=== PATIENT | male | born 1995 | race Caucasian/White ===

== ENCOUNTER 2017-06-22 14:36 | Emergency (ER) | payer BC ==
[~2017-06-22] VITALS: Ht 177.8 cm; Wt 80.0 kg
[~2017-06-22 14:36] MED LIST: ALBU8.5H3 INH; ALBU8.5H5 INH; CETI10CA PO; GUAI118L94 PO; GUAI120S26 PO; PRED20TA PO; PRED50TA PO
[2017-06-22 14:39] VITALS: Ht 177.8 cm; Wt 80.0 kg
[2017-06-22] MEDS ORDERED: LIDOCAINE 1% (MDV) 20 ML INJ SC ONE (15:00)
--- NOTE | 2017-06-22 17:29 | ERD ---
ER Documentation Chief Complaint Date/Time DATE: 06/22/17 TIME: 17:20 Chief Complaint left index lac HPI 22-year-old male coming in complaining of a laceration to his right index finger. Patient is right-hand dominant. Laceration was sustained when he was cleaning a knife. Last tetanus shot was 2 months ago. Patient denies any numbness or tingling. Patient states he is able to move his fingers without any difficulty. Medical history: Denies NKDA Surgical history: Denies Social history: Denies ROS All systems reviewed and are negative except as per history of present illness. Medications Home Meds Active Scripts Cetirizine Hcl* (Zyrtec*) 10 Mg Capsule, 10 MG PO DAILY, #30 TAB.CHEW Prov:CRISTA BANSAL NP 02/04/16 Omsiihsdkex-K-Uhejsxwqbf Hb* (Guaifenesin* DM Syrup) 120 Ml Syrup, 10 ML PO Q4H Y for COUGH, #120 ML Prov:CRISTA BANSAL NP 02/04/16 Prednisone* (Prednisone*) 50 Mg Tablet, 50 MG PO DAILY for 5 Days, TAB Prov:CRISTA BANSAL NP 02/04/16 Albuterol Sulfate* (Proair HFA*) 8.5 Gm Hfa.aer.ad, 2 PUFF INH Q4H Y for WHEEZING AND SOB, #1 INHALER Prov:CRISTA BANSAL NP 02/04/16 Prednisone* (Prednisone*) 50 Mg Tablet, 50 MG PO DAILY for 5 Days, TAB Prov:CRISTA BANSAL NP 12/09/15 Albuterol Sulfate* (Proair HFA*) 8.5 Gm Hfa.aer.ad, 2 PUFF INH Q4H Y for WHEEZING AND SOB, #1 INHALER Prov:CRISTA BANSAL NP 12/09/15 Guaifenesin-Codeine Phosphate* (Guaifenesin* with Codeine Liq) 120 Ml Liquid, 5 ML PO Q4H for COUGH, #60 ML Prov:CRISTA BANSAL NP 12/09/15 Albuterol Sulfate* (Albuterol Sulfate* HFA) 8.5 Gm Hfa.aer.ad, 1-2 PUFF INH Q4 Y for SHORTNESS OF BREATH, #1 EA Prov:ELDER MIXON. 06/01/15 Prednisone* (Prednisone*) 20 Mg Tab, 60 MG PO DAILY for 5 Days Prov:ELDER MIXON. 06/01/15 Reported Medications Albuterol Sulfate* (Proair HFA*) Unknown Strength Hfa.aer.ad, INH Q6, #1 INHALER 02/04/16 Allergies Allergies: Coded Allergies: No Known Allergy (Unverified , 02/04/16) PMhx/Soc History of Surgery: No Anesthesia Reaction: No Hx Neurological Disorder: No Hx Respiratory Disorders: Yes (Asthma) Hx Cardiac Disorders: No Hx Psychiatric Problems: No Hx Miscellaneous Medical Probl: No Hx Alcohol Use: Yes (Social) Hx Substance Use: Yes (MARIJUANA ) Hx Tobacco Use: No Physical Exam Vitals Vital Signs Date Time Temp Pulse Resp B/P Pulse Ox O2 Delivery O2 Flow Rate FiO2 06/22/17 14:39 98.0 67 18 131/71 99 Physical Exam GENERAL: The patient is well-appearing, well-nourished, in no acute distress CHEST: Clear to auscultation bilaterally. There are no rales, wheezes or rhonchi. HEART: Regular rate and rhythm. No murmurs, clicks, rubs or gallops. No S3 or S4. NEUROLOGIC: Alert and oriented. Cranial nerves II through XII intact. Motor strength in all 4 extremities with 5 out of 5 strength. Sensation grossly intact. Normal speech and gait. Babinski negative. DTR 2+ throughout. SKIN: 3 cm circular skin flap laceration on pad of right index finger. Mild bleeding. EXTREMITIES: Normal flexion extension of right index finger. Normal sensation to right index finger. Refill less than 2 seconds. Strength 5 out of 5 to right index finger. Results 24 hrs Current Medications Medications (Trade) Dose Ordered Sig/Hayde Route PRN Reason Start Time Stop Time Status Last Admin Dose Admin Lidocaine (Xylocaine 1% (Mdv) 20 ml) 20 ml ONCE ONCE SC 06/22/17 15:00 06/22/17 15:01 DC Procedures/MDM Laceration Note: Wound cleaned with Normal Saline. No foreign body seen. Bleeding well controlled. 4cc plain lido injected in right index finger and volar fashion. 5 5-0 nylon simple interrupted sutures placed. Edges well approximated. Site re-cleaned and bandage placed. Patient tolerated procedure well. MDM: 22-year-old male coming in for laceration repair of right index finger. I have low suspicion for tendon or ligament injury. Low suspicion for decreased sensation. Patient is neurovascularly intact. I have low suspicion for retained foreign body. No foreign body seen on blunt inspection. I have low suspicion for bone involvement. I do not feel there is indication for x-rays. Patient will be discharged with strict ER precautions. I recommended patient to leave bandage on for 24 hours and then clean with soap and water and re- bandage. Patient's sutures will be removed within 7 days and patient is recommended to return for wound check in 2 days. Departure Diagnosis: Primary Impression: Laceration Condition: Stable Patient Instructions: Laceration, Hand Referrals: [facility] YOU HAVE RECEIVED A MEDICAL SCREENING EXAM AND THE RESULTS INDICATE THAT YOU DO NOT HAVE A CONDITION THAT REQUIRES URGENT TREATMENT IN THE EMERGENCY DEPARTMENT. FURTHER EVALUATION AND TREATMENT OF YOUR CONDITION CAN WAIT UNTIL YOU ARE SEEN IN YOUR DOCTORS OFFICE WITHIN THE NEXT 1-2 DAYS. IT IS YOUR RESPONSIBILITY TO MAKE AN APPOINTMENT FOR [facility]. IF YOU HAVE A PRIMARY DOCTOR --you should call your primary doctor and schedule an appointment IF YOU DO NOT HAVE A PRIMARY DOCTOR YOU CAN CALL OUR PHYSICIAN REFERRAL HOTLINE AT IF YOU CAN NOT AFFORD TO SEE A PHYSICIAN YOU CAN CHOSE FROM THE FOLLOWING [facility] [address] [facility]. [facility] [address] [facility] [address] [facility] [facility] [address] [facility]. [facility] [address] [facility]. [facility]. [address] Additional Instructions: FOLLOW UP WITH YOUR PRIMARY CARE PHYSICIAN TOMORROW.Return to this facility if you are not improving as expected. COURTNEY ANAND PA-C Jun 22, 2017 17:29
== END 2017-06-22 16:16 | disposition home or self-care (01) ==
LOC: FTE 14:36
DX: S61.210A Laceration without foreign body of right index finger without damage to nail, initial encounter (principal); J45.909 Unspecified asthma, uncomplicated; W26.0XXA Contact with knife, initial encounter; Y92.9 Unspecified place or not applicable

== ENCOUNTER 2017-06-24 11:59 | Emergency (ER) | payer BC ==
[~2017-06-24] VITALS: Ht 177.8 cm; Wt 80.0 kg
[2017-06-24 12:02] VITALS: Ht 177.8 cm; Wt 80.0 kg
--- NOTE | 2017-06-24 12:24 | ERD ---
ER Documentation Chief Complaint Date/Time DATE: 06/24/17 TIME: 12:21 Chief Complaint wound check on r 2nd finger HPI Is a 22-year-old male who presents the emergency department today for wound check of a laceration that he sustained on his right index finger 2 days ago. Patient denies any fevers or chills. States he does have some mild pulsing but has not taken a medication for the pain. ROS All systems reviewed and are negative except as per history of present illness. Medications Home Meds Active Scripts Cetirizine Hcl* (Zyrtec*) 10 Mg Capsule, 10 MG PO DAILY, #30 TAB.CHEW Prov:CRISTA BANSAL DIRECTOR ORANGE 02/04/16 Cvoulhwzrld-N-Egaxdtlqqb Hb* (Guaifenesin* DM Syrup) 120 Ml Syrup, 10 ML PO Q4H Y for COUGH, #120 ML Prov:CRISTA BANSAL NP 02/04/16 Prednisone* (Prednisone*) 50 Mg Tablet, 50 MG PO DAILY for 5 Days, TAB Prov:CRISTA BANSAL NP 02/04/16 Albuterol Sulfate* (Proair HFA*) 8.5 Gm Hfa.aer.ad, 2 PUFF INH Q4H Y for WHEEZING AND SOB, #1 INHALER Prov:CRISTA BANSAL NP 02/04/16 Prednisone* (Prednisone*) 50 Mg Tablet, 50 MG PO DAILY for 5 Days, TAB Prov:CRISTA BANSAL NP 12/09/15 Albuterol Sulfate* (Proair HFA*) 8.5 Gm Hfa.aer.ad, 2 PUFF INH Q4H Y for WHEEZING AND SOB, #1 INHALER Prov:CRISTA BANSAL NP 12/09/15 Guaifenesin-Codeine Phosphate* (Guaifenesin* with Codeine Liq) 120 Ml Liquid, 5 ML PO Q4H for COUGH, #60 ML Prov:CRISTA BANSAL DIRECTOR ORANGE 12/09/15 Albuterol Sulfate* (Albuterol Sulfate* HFA) 8.5 Gm Hfa.aer.ad, 1-2 PUFF INH Q4 Y for SHORTNESS OF BREATH, #1 EA Prov:ELDER MIXON. 06/01/15 Prednisone* (Prednisone*) 20 Mg Tab, 60 MG PO DAILY for 5 Days Prov:ELDER MIXON. 06/01/15 Reported Medications Albuterol Sulfate* (Proair HFA*) Unknown Strength Hfa.aer.ad, INH Q6, #1 INHALER 02/04/16 Allergies Allergies: Coded Allergies: No Known Allergy (Unverified , 02/04/16) PMhx/Soc History of Surgery: No Anesthesia Reaction: No Hx Neurological Disorder: No Hx Respiratory Disorders: Yes (Asthma) Hx Cardiac Disorders: No Hx Psychiatric Problems: No Hx Miscellaneous Medical Probl: No Hx Alcohol Use: Yes (Social) Hx Substance Use: Yes (MARIJUANA ) Hx Tobacco Use: No Physical Exam Vitals Vital Signs Date Time Temp Pulse Resp B/P Pulse Ox O2 Delivery O2 Flow Rate FiO2 06/24/17 12:02 98.5 85 18 131/71 97 Physical Exam Const: No acute distress Head: Atraumatic Eyes: Normal Conjunctiva ENT: Normal External Ears, Nose and Mouth. Neck: Full range of motion..~ No meningismus. Resp: Clear to auscultation bilaterally Cardio: Regular rate and rhythm, no murmurs Skin: Right index finger evidence of 5 sutures placed. No purulent drainage, erythema or warmth Back: No midline or flank tenderness Ext: Right index finger evidence of 5 sutures placed. Full active range of motion of finger. Pulses 2+. Distal neurovascularly intact. Wound appears to be healing well and well approximated. Neur: Awake and alert Psych: Normal Mood and Affect Procedures/MDM This a 22-year-old male who presents the emergency department today for a wound check of a laceration he sustained 2 days ago while cutting something with a knife. Patient had 5 sutures placed at that time. There is no x-rays done as there did not appear to be evidence of fracture or tendon involvement. Patient has full active range of motion. Wound appears to be healing well and is well approximated. Low suspicion for cellulitis, sepsis or deep space infection. Patient was instructed to follow-up with his primary care doctor in 5-7 days for suture removal or he may return here to the emergency department at that time. Patient understood. Patient did report some mild pulsing in his finger however he declined any pain medication. States that he does go to work and just covers up his finger when he goes to work at [employer] At this time the patient is stable for discharge and outpatient management. Patient should follow up with their PCP in the next 1-2 days. They may return to the emergency department sooner for any persistent or worsening of symptoms. Patient understood and agreed with the plan. Departure Diagnosis: Primary Impression: Encounter for wound re-check Condition: Fair Patient Instructions: Wound Check, Lac F/U (No Infection) Referrals: [facility] YOU HAVE RECEIVED A MEDICAL SCREENING EXAM AND THE RESULTS INDICATE THAT YOU DO NOT HAVE A CONDITION THAT REQUIRES URGENT TREATMENT IN THE EMERGENCY DEPARTMENT. FURTHER EVALUATION AND TREATMENT OF YOUR CONDITION CAN WAIT UNTIL YOU ARE SEEN IN YOUR DOCTORS OFFICE WITHIN THE NEXT 1-2 DAYS. IT IS YOUR RESPONSIBILITY TO MAKE AN APPOINTMENT FOR [facility]. IF YOU HAVE A PRIMARY DOCTOR --you should call your primary doctor and schedule an appointment IF YOU DO NOT HAVE A PRIMARY DOCTOR YOU CAN CALL OUR PHYSICIAN REFERRAL HOTLINE AT IF YOU CAN NOT AFFORD TO SEE A PHYSICIAN YOU CAN CHOSE FROM THE FOLLOWING [facility] [address] [facility]. [facility] [address] [facility] [address] [facility] [facility] [address] [facility]. [facility] [address] [facility]. [facility]. [address] Additional Instructions: Call your primary care doctor TOMORROW for an appointment during the next 1-2 days.See the doctor sooner or return here if your condition worsens before your appointment time. Keep wound clean and dry Suture removal in 5-7 days YADIEL LYN PA-C Jun 24, 2017 12:23
== END 2017-06-24 12:42 | disposition home or self-care (01) ==
LOC: FTE 11:59
DX: Z48.01 Encounter for change or removal of surgical wound dressing (principal); J45.909 Unspecified asthma, uncomplicated
CPT/HCPCS: 99281

== ENCOUNTER 2018-03-10 09:03 | Emergency (ER) | END 2018-03-10 09:40 | disposition home or self-care (01) ==